=== PATIENT | male | born 1970 | race American Indian/Alaskan Native ===

== ENCOUNTER 2020-05-06 18:17 | Emergency (ER) | payer SELFPAY ==
--- NOTE | 2020-05-06 21:51 | Emergency Department Report ---
ED General Adult HPI - General Chief complaint: Eye Problems Stated complaint: LEFT EYE PAIN X 7 DAYS/LEFT BUTTOCK PAIN Source: patient Mode of arrival: Ambulatory Limitations: No Limitations - History of Present Illness Initial comments: Patient is a 49-year-old -[place] male with a history of hypertension and who is noncompliant with medication presents to the ED with complaint of acute onset persistent nontraumatic low back pain that radiates to the left hip and left leg intermittently for the last 2 days. Patient also states that his blood pressure has been persistently elevated and that he stopped taking blood pressure medications over 8 months ago when he ran out of the medication. Patient states that he has not been able to follow-up with any primary care physician because he does not have health insurance. Patient denies dizziness, syncope, nausea, vomiting, traumatic injury, fall, heavy lifting, bilateral lower extremity weakness, urinary or bowel incontinence, saddle paresthesia, chest pain or shortness of breath and headache. MD Complaint: Low back and left hip pain that radiates to the left leg -: Sudden, days(s) (2) Location: back, lower extremity (left hip) Radiation: extremity Severity scale (0 -10): 6 (Left lower leg) Quality: aching, sharp Consistency: constant Improves with: none Worsens with: movement Associated Symptoms: denies other symptoms. denies: confusion, chest pain, cough, diaphoresis, fever/chills, headaches, loss of appetite, malaise, nausea/vomiting, rash, shortness of breath, syncope, weakness Treatments Prior to Arrival: none - Related Data Previous Rx's Medication Instructions Recorded Last Taken Type Clindamycin [Clindamycin CAP] 300 mg PO Q8H #20 cap 05/09/14 Unknown Rx Lisinopril/Hydrochlorothiazide 1 tab PO QDAY #90 tablet 05/09/14 Unknown Rx [Zestoretic 10-12.5 mg] Lisinopril/Hydrochlorothiazide 1 tab PO QDAY #30 tab 05/06/20 Unknown Rx [Zestoretic 20-12.5 mg] Naproxen 500 mg PO Q12H PRN #30 tablet 05/06/20 Unknown Rx methOCARBAMOL [Robaxin TAB] 750 mg PO Q8H PRN #30 tablet 05/06/20 Unknown Rx predniSONE [Deltasone] 40 mg PO QDAY #12 tab 05/06/20 Unknown Rx Allergies Allergy/AdvReac Type Severity Reaction Status Date / Time No Known Allergies Allergy Verified 05/06/20 18:30 ED Review of Systems ROS: Stated complaint: LEFT EYE PAIN X 7 DAYS/LEFT BUTTOCK PAIN Other details as noted in HPI Constitutional: denies: chills, fever Eyes: denies: eye pain, eye discharge, vision change ENT: denies: ear pain, throat pain Respiratory: denies: cough, shortness of breath, wheezing Cardiovascular: denies: chest pain, palpitations Endocrine: no symptoms reported Gastrointestinal: denies: abdominal pain, nausea, diarrhea Genitourinary: denies: urgency, dysuria Musculoskeletal: back pain (low back), arthralgia (left hip radiating to left leg). denies: joint swelling Skin: denies: rash, lesions Neurological: denies: headache, weakness, paresthesias Psychiatric: denies: anxiety, depression Hematological/Lymphatic: denies: easy bleeding, easy bruising ED Past Medical Hx - Past Medical History Hx Hypertension: Yes - Surgical History Past Surgical History?: No - Social History Smoking Status: Never Smoker Substance Use Type: None - Medications Home Medications: Home Medications Medication Instructions Recorded Confirmed Last Taken Type Clindamycin [Clindamycin CAP] 300 mg PO Q8H #20 cap 05/09/14 06/09/14 Unknown Rx Lisinopril/Hydrochlorothiazide 1 tab PO QDAY #90 tablet 05/09/14 06/09/14 Unknown Rx [Zestoretic 10-12.5 mg] Lisinopril/Hydrochlorothiazide 1 tab PO QDAY #30 tab 05/06/20 Unknown Rx [Zestoretic 20-12.5 mg] Naproxen 500 mg PO Q12H PRN #30 tablet 05/06/20 Unknown Rx methOCARBAMOL [Robaxin TAB] 750 mg PO Q8H PRN #30 tablet 05/06/20 Unknown Rx predniSONE [Deltasone] 40 mg PO QDAY #12 tab 05/06/20 Unknown Rx ED Physical Exam - General Limitations: No Limitations General appearance: alert, in no apparent distress - Head Head exam: Present: atraumatic, normocephalic, normal inspection - Eye Eye exam: Present: normal appearance, PERRL, EOMI Pupils: Present: normal accommodation - ENT ENT exam: Present: normal exam, normal orophraynx, mucous membranes moist, TM's normal bilaterally, normal external ear exam - Neck Neck exam: Present: normal inspection, full ROM - Respiratory Respiratory exam: Present: normal lung sounds bilaterally. Absent: respiratory distress, wheezes, rales, rhonchi, chest wall tenderness, accessory muscle use, decreased breath sounds, prolonged expiratory - Cardiovascular Cardiovascular Exam: Present: regular rate, normal rhythm, normal heart sounds. Absent: systolic murmur, diastolic murmur, rubs, gallop - GI/Abdominal GI/Abdominal exam: Present: soft, normal bowel sounds. Absent: tenderness, guarding, rigid, hyperactive bowel sounds, hypoactive bowel sounds, organomegaly - Extremities Exam Extremities exam: Present: normal inspection, full ROM, tenderness (Palpable left hip tenderness), normal capillary refill. Absent: pedal edema, joint swelling - Back Exam Back exam: Present: normal inspection, full ROM, tenderness (Palpable lumbosacral paraspinal musculoskeletal tenderness), muscle spasm, paraspinal tenderness - Neurological Exam Neurological exam: Present: alert, oriented X3, CN II-XII intact, normal gait, reflexes normal - Psychiatric Psychiatric exam: Present: normal affect, normal mood - Skin Skin exam: Present: warm, dry, intact, normal color. Absent: rash ED Course Vital Signs 05/06/20 18:30 Temperature 99 F Pulse Rate 78 Respiratory 20 Rate Blood Pressure 183/97 O2 Sat by Pulse 100 Oximetry ED Medical Decision Making - Medical Decision Making This is a 49-year-old -[place] male with a history of hypertension and who is noncompliant with medication presents to the ED with complaint of acute onset persistent nontraumatic low back pain that radiates to the left hip and left leg intermittently for the last 2 days. Patient also states that his blood pressure has been persistently elevated and that he stopped taking blood pressure medications over 8 months ago when he ran out of the medication. Patient states that he has not been able to follow-up with any primary care physician because he does not have health insurance. In the ED, patient is alert and oriented x3 and is not in distress but hypertensive in triage. Patient was treated for pain in the ED and discharged home on pain medication and a refill of his blood pressure medications. Patient was given a referral to the local freestanding clinics for further evaluation and follow-up and to establish care. Patient was advised to return to the ED immediately if symptoms get worse. - Differential Diagnosis Muscle spasm; muscle strain; sciatica; hypertension Critical care attestation.: If time is entered above; I have spent that time in minutes in the direct care of this critically ill patient, excluding procedure time. ED Disposition Clinical Impression: Spasm of muscle of lower back, Left sided sciatica, Uncontrolled stage 2 hypertension Disposition: TO HOME OR SELFCARE Is pt being admited?: No Does the pt Need Aspirin: No Condition: Stable Instructions: Muscle Cramps and Spasms, [id number], Sciatica, [id number], Sciatica, Hypertension (ED), Hypertension, Adult, [id number] Additional Instructions: Take medication with food, drink plenty of fluids and follow-up with your primary care physician in 7 to 10 days for reevaluation. Return to the ED immediately if symptoms get worse. Prescriptions: predniSONE [Deltasone] 40 mg PO QDAY #12 tab Naproxen 500 mg PO Q12H PRN #30 tablet PRN Reason: Pain , Severe (7-10) methOCARBAMOL [Robaxin TAB] 750 mg PO Q8H PRN #30 tablet PRN Reason: Muscle Spasm Lisinopril/Hydrochlorothiazide [Zestoretic 20-12.5 mg] 1 tab PO QDAY #30 tab Referrals: [facility] [Outside] - 3-5 Days [facility] [Provider Group] - 3-5 Days CARLO NARANJO MD [Staff Physician] - 3-5 Days Time of Disposition: 21:48 Print Language: SERBIAN
[2020-05-06] MEDS ORDERED: IBUPROFEN 600 MG TAB PO ONE (21:52)
[2020-05-06] MEDS ORDERED: ACETAMINOPHEN 500 MG TAB PO ONE (21:52)
[2020-05-06 23:34] VITALS: BP 172/90
== END 2020-05-06 22:45 | disposition home or self-care (01) ==
LOC: ED 18:17
DX: I10 Essential (primary) hypertension (principal); M54.32 Sciatica, left side; M62.830 Muscle spasm of back; Z79.899 Other long term (current) drug therapy
CPT/HCPCS: 99282

== ENCOUNTER 2021-02-13 16:28 | Emergency (ER) | payer SELFPAY ==
--- NOTE | 2021-02-13 16:40 | Event Note ---
ED Screening Note ED Screening Note: This is a 50-year-old male that presents with chest pain/tightness and SOB. This initial assessment/diagnostic orders/clinical plan/treatment(s) is/are subject to change based on patients health status, clinical progression and re- assessment by fellow clinical providers in the ED. Further treatment and workup at subsequent clinical providers discretion. Patient/guardian urged not to elope from the ED as their condition may be serious if not clinically assessed and managed. Initial orders include: cardiac workup
--- NOTE | 2021-02-13 17:06 | XRay Report ---
CHEST 2 VIEWS INDICATION / CLINICAL INFORMATION: Chest Pain. Elevated blood pressure and blood sugar. COMPARISON: 10/19/13 FINDINGS: SUPPORT DEVICES: None. HEART / MEDIASTINUM: No significant abnormality. LUNGS / PLEURA: No significant pulmonary or pleural abnormality. No pneumothorax. ADDITIONAL FINDINGS: No significant additional findings. IMPRESSION: 1. No acute findings. No change. Signer Name: Niyah Jorgensen MD Signed: 02/13/2021 5:02 PM Workstation Name: [id number]
[2021-02-13 17:43] LABS: Alanine Aminotransferase 9 units/L (7-56); Albumin 3.8 g/dL (3.9-5); Blood Urea Nitrogen 7 mg/dL (9-20); Calcium 9.4 mg/dL (8.4-10.2); Hemolysis Index 21
[2021-02-13 17:44] LABS: BUN/Creatinine Ratio 14
[2021-02-13 18:00] LABS: Basophils # (Auto) 0.1 K/mm3 (0.0-0.1); Basophils % (Auto) 0.9 % (0.0-1.8); Eosinophils # (Auto) 0.1 K/mm3 (0.0-0.4); Eosinophils % (Auto) 1.6 % (0.0-4.3); Hematocrit 42.2 % (35.5-45.6); Hemoglobin 13.6 gm/dl (11.8-15.2); Lymphocytes % (Auto) 32.7 % (13.4-35.0); Mean Corpuscular HGB Conc 32 % (32-34); Mean Corpuscular Volume 85 fl (84-94); Monocytes # (Auto) 0.8 K/mm3 (0.0-0.8); Monocytes % (Auto) 12.2 % (0.0-7.3); Platelet Count 310 K/mm3 (140-440); Red Blood Count 4.94 M/mm3 (3.65-5.03); Red Cell Distribution Width 14.1 % (13.2-15.2)
[2021-02-13 18:17] LABS: INR 0.94 (0.87-1.13)
[2021-02-13 18:18] LABS: Partial Thromboplastin Time 29.9 Sec. (24.2-36.6)
--- NOTE | 2021-02-13 22:09 | Emergency Department Report ---
ED General Adult HPI - General Chief complaint: Chest Pain Stated complaint: CHEST PAIN, LT SHOULDER BP ELEVATED Time Seen by Provider: 02/13/21 16:39 Source: patient Mode of arrival: Ambulatory Limitations: No Limitations - History of Present Illness Initial comments: Patient is 50 years old male with history of hypertension, noncompliant with his medication. Patient stated that he was off his medication for approximately 3 months now. Patient also stated that he was recently diagnosed with COVID-19 but he tested negative for 5 days ago. Patient presented to the ER complaining of diffuse chest pain, sharp in nature with no radiation. Patient denied any shortness of breath, cough, fever or chills. - Related Data Previous Rx's Medication Instructions Recorded Last Taken Type Clindamycin [Clindamycin CAP] 300 mg PO Q8H #20 cap 05/09/14 Unknown Rx Lisinopril/Hydrochlorothiazide 1 tab PO QDAY #90 tablet 05/09/14 Unknown Rx [Zestoretic 10-12.5 mg] Lisinopril/Hydrochlorothiazide 1 tab PO QDAY #30 tab 05/06/20 Unknown Rx [Zestoretic 20-12.5 mg] Naproxen 500 mg PO Q12H PRN #30 tablet 05/06/20 Unknown Rx methOCARBAMOL [Robaxin TAB] 750 mg PO Q8H PRN #30 tablet 05/06/20 Unknown Rx predniSONE [Deltasone] 40 mg PO QDAY #12 tab 05/06/20 Unknown Rx Allergies Allergy/AdvReac Type Severity Reaction Status Date / Time No Known Allergies Allergy Verified 05/06/20 18:30 ED Review of Systems ROS: Stated complaint: CHEST PAIN, LT SHOULDER BP ELEVATED Other details as noted in HPI Comment: All other systems reviewed and negative Constitutional: denies: chills, fever Respiratory: denies: cough, shortness of breath, SOB with exertion Cardiovascular: chest pain. denies: palpitations Gastrointestinal: denies: abdominal pain, nausea Neurological: denies: headache, weakness, numbness, paresthesias, confusion, abnormal gait ED Past Medical Hx - Past Medical History Previous Medical History?: Yes Hx Hypertension: Yes - Surgical History Past Surgical History?: No - Social History Smoking Status: Never Smoker Substance Use Type: None - Medications Home Medications: Home Medications Medication Instructions Recorded Confirmed Last Taken Type Clindamycin [Clindamycin CAP] 300 mg PO Q8H #20 cap 05/09/14 06/09/14 Unknown Rx Lisinopril/Hydrochlorothiazide 1 tab PO QDAY #90 tablet 05/09/14 06/09/14 Un known Rx [Zestoretic 10-12.5 mg] Lisinopril/Hydrochlorothiazide 1 tab PO QDAY #30 tab 05/06/20 Unknown Rx [Zestoretic 20-12.5 mg] Naproxen 500 mg PO Q12H PRN #30 tablet 05/06/20 Unknown Rx methOCARBAMOL [Robaxin TAB] 750 mg PO Q8H PRN #30 tablet 05/06/20 Unknown Rx predniSONE [Deltasone] 40 mg PO QDAY #12 tab 05/06/20 Unknown Rx ED Physical Exam - General Limitations: No Limitations General appearance: alert, in no apparent distress - Head Head exam: Present: atraumatic, normocephalic, normal inspection - Eye Eye exam: Present: normal appearance, PERRL - ENT ENT exam: Present: normal exam, normal orophraynx, mucous membranes moist - Neck Neck exam: Present: normal inspection, full ROM. Absent: tenderness, meningismu s - Respiratory Respiratory exam: Present: normal lung sounds bilaterally - Cardiovascular Cardiovascular Exam: Present: regular rate, normal rhythm, normal heart sounds - GI/Abdominal GI/Abdominal exam: Present: soft, normal bowel sounds. Absent: distended, tenderness, guarding, rebound, rigid, organomegaly, mass, bruit, pulsatile mass, hernia - Back Exam Back exam: Present: normal inspection, full ROM. Absent: CVA tenderness (R), CVA tenderness (L) - Neurological Exam Neurological exam: Present: alert, oriented X3, CN II-XII intact - Psychiatric Psychiatric exam: Present: normal mood - Skin Skin exam: Present: warm, normal color, erythema ED Course Vital Signs 02/13/21 16:37 Temperature 98.8 F Pulse Rate 98 H Respiratory 18 Rate Blood Pressure 199/120 [Right] O2 Sat by Pulse 98 Oximetry ED Medical Decision Making - Lab Data Result diagrams: 02/13/21 17:06 02/13/21 17:06 - EKG Data -: EKG Interpreted by [place] EKG shows normal: sinus rhythm Rate: normal - EKG Data Interpretation: no acute changes - Radiology Data Radiology results: report reviewed - Medical Decision Making Patient is 50 years old male with history of hypertension, noncompliant with his medication. Patient stated that he was off his medication for approximately 3 months now. Patient also stated that he was recently diagnosed with COVID-19 but he tested negative for 5 days ago. Patient presented to the ER complaining of diffuse chest pain, sharp in nature with no radiation. Patient denied any shortness of breath, cough, fever or chills. EKG is unremarkable. Chest x-ray is negative for acute finding. Labs reviewed and is unremarkable including troponin x2. Patient found to have blood pressure of 190/114. Patient given prescription for Norvasc and advised to follow-up with primary doctor in the next 2 to 3 days and to return to the ER if he develop any new symptoms. Critical care attestation.: If time is entered above; I have spent that time in minutes in the direct care of this critically ill patient, excluding procedure time. ED Disposition Clinical Impression: Acute chest pain, Malignant hypertension, Cutaneous candidiasis Disposition: 01 HOME / SELF CARE / HOMELESS Is pt being admited?: No Condition: Stable Instructions: Chest Pain (ED), Hypertension (ED), Genital Yeast Infection, Male, Nonspecific Chest Pain, Adult, Hypertension, Adult Referrals: SUDEEP PADRON MD [Staff Physician] - 3-5 Days
[2021-02-13 22:26] VITALS: BP 177/94
--- NOTE | 2021-02-15 10:06 | Electrocardiograph Report ---
[facility] Test Date: 2021-02-13 Test Time: 16:44:23 Pat Name: MARYLIN ALONSO Department: Room: Gender: M [employer] Record Clerk: ALISHA : 1970 Requested By: ANASTASIA REDD Order Number: [id number] Reading MD: Joey Huertas Measurements Intervals [place] Rate: 71 P: 46 NC: 165 QRS: -6 QRSD: 132 T: -1 QT: 402 QTc: 437 Interpretive Statements Sinus rhythm Right bundle branch block No previous ECG available for comparison Electronically Signed On 02-15-2021 10:05:35 EDT by Joey Huertas
== END 2021-02-13 22:25 | disposition home or self-care (01) ==
LOC: ED 16:28
DX: I10 Essential (primary) hypertension (principal); B37.2 Candidiasis of skin and nail
CPT/HCPCS: 36415; 71046; 80053; 83735; 84484; 85025; 85610; 85730; 93005; 99283

== ENCOUNTER 2021-02-22 20:02 | Emergency (ER) | payer SELFPAY ==
[2021-02-22 22:12] VITALS: BP 150/101
--- NOTE | 2021-02-22 23:42 | Emergency Department Report ---
ED Allergic Reaction HPI - General Chief complaint: Allergic Reaction Stated complaint: SWOLLEN LIP Time Seen by Provider: 02/22/21 23:06 Source: patient Mode of arrival: Ambulatory Limitations: No Limitations - History of Present Illness Initial Comments: 50-year-old male with asthma department complaining of swelling pruritus to his lower lip after consuming an object which he thinks he may have allergy to the negative since the onset about 3 to 4 hours prior to arrival. Reports no hemoptysis no hematemesis no hematochezia no odynophagia or dysphagia. No wheezing no fever chills sweats MD Complaint: allergic reaction, facial swelling Symptoms: itching, lip swelling Severity: mild Treatment Prior to Arrival: none Previous Allergy History: none - Related Data Previous Rx's Medication Instructions Recorded Last Taken Type Clindamycin [Clindamycin CAP] 300 mg PO Q8H #20 cap 05/09/14 Unknown Rx Lisinopril/Hydrochlorothiazide 1 tab PO QDAY #90 tablet 05/09/14 Unknown Rx [Zestoretic 10-12.5 mg] Lisinopril/Hydrochlorothiazide 1 tab PO QDAY #30 tab 05/06/20 Unknown Rx [Zestoretic 20-12.5 mg] Naproxen 500 mg PO Q12H PRN #30 tablet 05/06/20 Unknown Rx methOCARBAMOL [Robaxin TAB] 750 mg PO Q8H PRN #30 tablet 05/06/20 Unknown Rx predniSONE [Deltasone] 40 mg PO QDAY #12 tab 05/06/20 Unknown Rx Fluconazole [Diflucan TAB] 100 mg PO BID #2 tablet 02/13/21 Unknown Rx Lisinopril/Hydrochlorothiazide 1 tab PO QDAY #30 tab 02/13/21 Unknown Rx [Zestoretic 20-25 mg] Desloratadine [Clarinex] 5 mg PO DAILY #14 tablet 02/22/21 Unknown Rx hydrOXYzine HCL [Atarax] 25 mg PO Q6HR PRN #20 tablet 02/22/21 Unknown Rx predniSONE [Deltasone] 50 mg PO QDAY #5 tab 02/22/21 Unknown Rx Allergies Allergy/AdvReac Type Severity Reaction Status Date / Time No Known Allergies Allergy Verified 02/22/21 22:12 ED Review of Systems ROS: Stated complaint: SWOLLEN LIP Other details as noted in HPI Comment: All other systems reviewed and negative ED Past Medical Hx - Past Medical History Previous Medical History?: No Hx Hypertension: Yes - Surgical History Past Surgical History?: No - Social History Smoking Status: Former Smoker - Medications Home Medications: Home Medications Medication Instructions Recorded Confirmed Last Taken Type Clindamycin [Clindamycin CAP] 300 mg PO Q8H #20 cap 05/09/14 06/09/14 Unknown Rx Lisinopril/Hydrochlorothiazide 1 tab PO QDAY #90 tablet 05/09/14 06/09/14 Unknown Rx [Zestoretic 10-12.5 mg] Lisinopril/Hydrochlorothiazide 1 tab PO QDAY #30 tab 05/06/20 Unknown Rx [Zestoretic 20-12.5 mg] Naproxen 500 mg PO Q12H PRN #30 tablet 05/06/20 Unknown Rx methOCARBAMOL [Robaxin TAB] 750 mg PO Q8H PRN #30 tablet 05/06/20 Unknown Rx predniSONE [Deltasone] 40 mg PO QDAY #12 tab 05/06/20 Unknown Rx Fluconazole [Diflucan TAB] 100 mg PO BID #2 tablet 02/13/21 Unknown Rx Lisinopril/Hydrochlorothiazide 1 tab PO QDAY #30 tab 02/13/21 Unknown Rx [Zestoretic 20-25 mg] Desloratadine [Clarinex] 5 mg PO DAILY #14 tablet 02/22/21 Unknown Rx hydrOXYzine HCL [Atarax] 25 mg PO Q6HR PRN #20 tablet 02/22/21 Unknown Rx predniSONE [Deltasone] 50 mg PO QDAY #5 tab 02/22/21 Unknown Rx ED Physical Exam - General Limitations: No Limitations General appearance: alert, in no apparent distress - Head Head exam: Present: atraumatic, normocephalic - Expanded Head Exam Expanded 1 - Swelling tenderness to the right lower lip - Eye Eye exam: Present: normal appearance, PERRL Pupils: Present: normal accommodation - ENT ENT exam: Present: mucous membranes moist, other (Airway patent tongue uvula midline) - Neck Neck exam: Present: normal inspection - Respiratory Respiratory exam: Present: normal lung sounds bilaterally. Absent: respiratory distress - Cardiovascular Cardiovascular Exam: Present: regular rate, normal rhythm. Absent: systolic murmur, diastolic murmur, rubs, gallop - GI/Abdominal GI/Abdominal exam: Present: soft, normal bowel sounds - Rectal Rectal exam: Present: deferred - Extremities Exam Extremities exam: Present: normal inspection - Back Exam Back exam: Present: normal inspection - Neurological Exam Neurological exam: Present: alert, oriented X3 - Psychiatric Psychiatric exam: Present: normal affect, normal mood - Skin Skin exam: Present: warm, dry, intact, normal color. Absent: rash ED Course Vital Signs 02/22/21 22:08 Temperature 98.9 F Pulse Rate 89 Respiratory 18 Rate Blood Pressure 150/101 O2 Sat by Pulse 99 Oximetry ED Medical Decision Making - Medical Decision Making This patient presents with symptoms consistent with acute hypersensitivity reaction, likely acute allergic reaction. Presentation not consistent with acut e anaphylaxis (lack of pulmonary, dermatologic, cardiovascular or GI symptoms, lack of hypotension or exposure to known allergen), angioedema, serum sickness(no recent drug exposure, lack of fevers, arthralgias), ingestion of preformed toxin. No evidence of airway compromise or shock at this time. Plan to treat for allergic reaction with H2/H1 blockers, steroids. No indication for epinephrine at this time. Plan Critical care attestation.: If time is entered above; I have spent that time in minutes in the direct care of this critically ill patient, excluding procedure time. ED Disposition Clinical Impression: Allergic reaction Disposition: 01 HOME / SELF CARE / HOMELESS Is pt being admited?: No Does the pt Need Aspirin: No Condition: Stable Instructions: Allergies, Adult, [id number] Prescriptions: hydrOXYzine HCL [Atarax] 25 mg PO Q6HR PRN #20 tablet PRN Reason: Itching Desloratadine [Clarinex] 5 mg PO DAILY #14 tablet predniSONE [Deltasone] 50 mg PO QDAY #5 tab Referrals: [facility] [Provider Group] - 3-5 Days
== END 2021-02-23 00:30 | disposition home or self-care (01) ==
LOC: ED 20:02
DX: T78.40XA Allergy, unspecified, initial encounter (principal); I10 Essential (primary) hypertension; Z87.891 Personal history of nicotine dependence; Z79.899 Other long term (current) drug therapy; X58.XXXA Exposure to other specified factors, initial encounter
CPT/HCPCS: 99282